=== PATIENT | female | born 1995 | race Caucasian/White ===

== ENCOUNTER 2018-06-23 20:49 | Emergency (ER) | payer BC, OTHER ==
[~2018-06-23] VITALS: Ht 157.5 cm; Wt 88.1 kg
[~2018-06-23 20:49] MED LIST: BCTROWC TD
[2018-06-23 20:51] VITALS: TEMP 37.1; Ht 157.5 cm; Wt 88.1 kg
[2018-06-23] MEDS ORDERED: SODIUM CHLORIDE 0.9% 1000ML 1,000 ML IV STA (21:01)
[2018-06-23] MEDS ORDERED: LEVO50TA6 PO (21:54)
[2018-06-23] MEDS ORDERED: BCPILLS PO (21:54)
[2018-06-23 22:07] LABS: BASO % 0.4 %; BASO ABS # 0.03 K/uL (0-0.2); EOS % 0.7 %; EOS ABS # 0.05 K/uL (0-0.5); HEMATOCRIT 39.5 % (37-47); HEMOGLOBIN 12.5 g/dL (12.0-16.0); IG# 0.01 K/uL (0.00-0.02); LYMPH % 31.7 %; LYMPH ABS # 2.21 K/uL (1.2-3.4); MEAN CELL VOLUME 89.4 fL (80-100); MEAN CORPUSCULAR HEMOGLOBIN 28.3 pg (25-34); MEAN CORPUSCULAR HGB CONC 31.6 g/dl (32-36); MEAN PLATELET VOLUME 12.4 fL (7.4-10.4); MONO ABS # 0.63 K/uL (0.11-0.59); NEUT % 58.1 %; NEUT ABS # 4.04 K/uL (1.4-6.5); PLATELET COUNT 246 K/uL (130-400); RED CELL DISTRIBUTION WIDTH CV 13.6 % (11.5-14.5); RED CELL DISTRIBUTION WIDTH SD 44.3 fL (36.4-46.3); WHITE BLOOD COUNT 6.97 K/uL (4.8-10.8)
--- NOTE | 2018-06-23 22:26 | DIAGNOSTIC IMAGING REPORT ---
ABD/PELVIS WITHOUT FOR STONE CLINICAL HISTORY: 23 years-old Female presenting with right flank pain, hematuria. TECHNIQUE: Multidetector CT of the abdomen and pelvis was performed without the use of intravenous contrast. IV contrast: None. A dose lowering technique was used consistent with the principles of ALARA (as low as reasonably achievable). COMPARISON: None. CT DOSE (mGy.cm): The estimated cumulative dose is 1070.67 mGy.cm. FINDINGS: Open Cut Examiner topogram: Unremarkable. Lung bases: Lungs and pleural spaces clear. Normal heart size. No pericardial or pleural effusion. Liver: Normal morphology. Normal density. Biliary: No gross biliary ductal dilatation allowing for noncontrast technique. Gallbladder decompressed. Pancreas: Normal noncontrast appearance. Spleen: Normal noncontrast appearance. Adrenal glands: Normal noncontrast appearance. Kidneys and ureters: Punctate nonobstructing calculus at the upper pole the right kidney (series 3 image 163) punctate nonobstructing calculus may also be present in the interpolar region of the left kidney (series 3 image 157) though this is equivocal. No hydronephrosis. No perinephric fluid. Ureters nondistended and normal. No ureteral calculi. Bladder: Normal noncontrast appearance. No bladder calculi. Pelvic organs: Normal noncontrast appearance. Bowel: Normal appendix. No bowel obstruction. Peritoneal cavity: No free fluid or intraperitoneal gas. Lymph nodes: No gross lymphadenopathy allowing for noncontrast technique. Vasculature: Normal noncontrast appearance. Calcification noted in the region of the right renal vein/IVC confluence, indeterminate and possibly related to prior thrombus though this may be extravascular. Abdominal wall: Normal. Musculoskeletal: Bilateral pars defects of L5. IMPRESSION: 1. Punctate nonobstructing right renal calculus and questionable punctate nonobstructing left renal calculus. No hydronephrosis or obstructing calculi evident. No acute intra-abdominal pathology allowing for noncontrast technique. Electronically signed by: Puneet Arreola M.D. 06/23/2018 10:24 PM Dictated Date/Time: 06/23/2018 10:18 PM
[2018-06-23 22:38] LABS: ALBUMIN 3.5 gm/dl (3.4-5.0); ALKALINE PHOSPHATASE 58 U/L (45-117); ALT/SGPT 23 U/L (12-78); AST/SGOT 18 U/L (15-37); BLOOD UREA NITROGEN 18 mg/dl (7-18); CALCIUM 8.6 mg/dl (8.5-10.1); CARBON DIOXIDE 28 mmol/L (21-32); CREATININE 0.91 mg/dl (0.60-1.20); GLUCOSE 79 mg/dl (70-99); LIPASE 97 U/L (73-393); SODIUM 141 mmol/L (136-145); TOTAL PROTEIN 7.3 gm/dl (6.4-8.2)
[2018-06-23] MEDS ORDERED: SULF800T23 PO (22:58)
[2018-06-23] MEDS ORDERED: SEPTRA DS HOME PACK 1 EA VIAL PO ONE (23:00)
[2018-06-23] MEDS ORDERED: PHENAZOPYRIDINE HOME PACK 200 MG VIAL PO ONE (23:00)
--- NOTE | 2018-06-23 23:00 | EMERGENCY ROOM VISIT NOTE ---
History Report prepared by Cristina: Emilei Maza Under the Supervision of: Dr. Luis F Mcallister M.D. First contact with patient: 20:57 Chief Complaint: URINARY SYMPTOMS Stated Complaint: UNABLE TO PEE, DEHYDRATION?,PAIN History of Present Illness The patient is a 23 year old female who presents to the Emergency Room with complaints of difficulty urinating beginning at 1500 today. She notes that when she went to use the bathroom, she only urinated a little bit, but felt like she still needed to urinate. She notes when she first noticed her symptoms, her urine was slightly pink tinged. The patient describes her feeling as sharp and uncomfortable and rates her pain as a 6/10 in severity. She has some lower right sided abdominal pain and lower right sided back pain. She reports she had some chest pain yesterday and today which is abnormal for her. Pt denies LOC, headache, fevers, chills, diaphoresis, visual changes, neck pain, breathing difficulties, nausea, vomiting, melena, hematochezia, numbness, weakness, lymphadenopathy, rash, or other complaints. Her PCP is Tobi Engel. Source of History: patient Onset: 1500 today Position: abdomen (RLQ), back (lower right side), other Symptom Intensity: 6/10 in severity Quality: sharp, other (uncomfortable) Associated Symptoms: + chest pain, + abdominal pain (RLQ), + back pain ( lower right side), + urinary symptoms (positive pink tinged urine) Review of Systems See HPI for pertinent positives and negatives. A total of ten systems were reviewed and were otherwise negative. Past Medical & Surgical Medical Problems: (1) Mica's disease Family History Cancer FHx: diabetes mellitus Gallbladder disease Heart disease High blood pressure Social History Smoking Status: Never Smoker Smokeless Tobacco Use: Yes Alcohol Use: none Marital Status: single Housing Status: lives with family Occupation Status: employed Current/Historical Medications Scheduled Control Pills ( Control Pills), 1 TAB PO DAILY Levothyroxine Sodium (Levothyroxine Sodium), 50 MCG PO DAILY Sulfa/Trimethoprim (Bactrim Ds 800MG/160MG), 1 TAB PO BID Allergies Coded Allergies: Ibuprofen (Verified Adverse Reaction, Mild, GI SYMPTOMS, 06/23/18) Physical Exam Vital Signs Date Time Temp Pulse Resp B/P (MAP) Pulse Ox O2 Delivery O2 Flow Rate FiO2 06/23/18 23:20 69 18 114/74 98 06/23/18 20:51 37.1 75 18 126/81 98 Room Air Physical Exam GENERAL: Awake, alert, well-appearing, in no distress HENT: Normocephalic, atraumatic. Oropharynx unremarkable. EYES: Normal conjunctiva. Sclera non-icteric. NECK: Supple. No nuchal rigidity. FROM. No masses. RESPIRATORY: Clear to auscultation. No wheezes. No rales. Normal respiratory effort. CARDIAC: Normal rate. Normal rhythm. No murmurs. No rubs. Extremities warm and well perfused. Pulses equal. No JVD. GI: Soft, non-distended. No tenderness to palpation. No rebound or guarding. No masses. RECTAL: Deferred. MUSCULOSKELETAL: Atraumatic. Chest examination reveals no tenderness. The back is symmetrical on inspection without obvious abnormality. Right CVA tenderness and right flank tenderness to palpation. No joint edema. LOWER EXTREMITIES: Calves are equal size bilaterally and non-tender. No edema. No discoloration. NEURO: Normal sensorium. No sensory or motor deficits noted. SKIN: No rash or jaundice noted. Medical Decision & Procedures ER Provider Diagnostic Interpretation: Radiology results as stated below per my review and radiologist interpretation: ABD/PELVIS WITHOUT FOR STONE CLINICAL HISTORY: 23 years-old Female presenting with right flank pain, hematuria. TECHNIQUE: Multidetector CT of the abdomen and pelvis was performed without the use of intravenous contrast. IV contrast: None. A dose lowering technique was used consistent with the principles of ALARA (as low as reasonably achievable). COMPARISON: None. CT DOSE (mGy.cm): The estimated cumulative dose is 1070.67 mGy.cm. FINDINGS: Photograph Printer topogram: Unremarkable. Lung bases: Lungs and pleural spaces clear. Normal heart size. No pericardial or pleural effusion. Liver: Normal morphology. Normal density. Biliary: No gross biliary ductal dilatation allowing for noncontrast technique. Gallbladder decompressed. Pancreas: Normal noncontrast appearance. Spleen: Normal noncontrast appearance. Adrenal glands: Normal noncontrast appearance. Kidneys and ureters: Punctate nonobstructing calculus at the upper pole the right kidney (series 3 image 163) punctate nonobstructing calculus may also be present in the interpolar region of the left kidney (series 3 image 157) though this is equivocal. No hydronephrosis. No perinephric fluid. Ureters nondistended and normal. No ureteral calculi. Bladder: Normal noncontrast appearance. No bladder calculi. Pelvic organs: Normal noncontrast appearance. Bowel: Normal appendix. No bowel obstruction. Peritoneal cavity: No free fluid or intraperitoneal gas. Lymph nodes: No gross lymphadenopathy allowing for noncontrast technique. Vasculature: Normal noncontrast appearance. Calcification noted in the region of the right renal vein/IVC confluence, indeterminate and possibly related to prior thrombus though this may be extravascular. Abdominal wall: Normal. Musculoskeletal: Bilateral pars defects of L5. IMPRESSION: 1. Punctate nonobstructing right renal calculus and questionable punctate nonobstructing left renal calculus. No hydronephrosis or obstructing calculi evident. No acute intra-abdominal pathology allowing for noncontrast technique. Electronically signed by: Puneet Arreola M.D. 06/23/2018 10:24 PM Laboratory Results 06/23/18 21:43 Red Blood Count 4.42, Mean Corpuscular Volume 89.4, Mean Corpuscular Hemoglobin 28.3, Mean Corpuscular Hemoglobin Concent 31.6, Mean Platelet Volume 12.4, Neutrophils (%) (Auto) 58.1, Lymphocytes (%) (Auto) 31.7, Monocytes (%) (Auto) 9.0, Eosinophils (%) (Auto) 0.7, Basophils (%) (Auto) 0.4, Neutrophils # (Auto) 4.04, Lymphocytes # (Auto) 2.21, Monocytes # (Auto) 0.63, Eosinophils # (Auto) 0.05, Basophils # (Auto) 0.03 06/23/18 21:43 Test 06/23/18 21:40 06/23/18 21:43 Urine Color YELLOW Urine Appearance TURBID (CLEAR) Urine pH 8.0 (4.5-7.5) Urine Specific [place] 1.027 (1.000-1.030) Urine Protein NEG (NEG) Urine Glucose (UA) NEG (NEG) Urine Ketones NEG (NEG) Urine Occult Blood 2+ (NEG) Urine Nitrite NEG (NEG) Urine Bilirubin NEG (NEG) Urine Urobilinogen NEG (NEG) Urine Leukocyte Esterase MODERATE (NEG) Urine WBC (Auto) >30 /hpf (0-5) Urine RBC (Auto) 10-30 /hpf (0-4) Urine Hyaline Casts (Auto) /lpf (0-5) Urine Epithelial Cells (Auto) >30 /lpf (0-5) Urine Bacteria (Auto) 2+ (NEG) Urine Pathogenic Casts /lpf (0) Urine Test NEG (NEG) White Blood Count 6.97 K/uL (4.8-10.8) Red Blood Count 4.42 M/uL (4.2-5.4) Hemoglobin 12.5 g/dL (12.0-16.0) Hematocrit 39.5 % (37-47) Mean Corpuscular Volume 89.4 fL (80-100) Mean Corpuscular Hemoglobin 28.3 pg (25-34) Mean Corpuscular Hemoglobin Concent 31.6 g/dl (32-36) Platelet Count 246 K/uL (130-400) Mean Platelet Volume 12.4 fL (7.4-10.4) Neutrophils (%) (Auto) 58.1 % Lymphocytes (%) (Auto) 31.7 % Monocytes (%) (Auto) 9.0 % Eosinophils (%) (Auto) 0.7 % Basophils (%) (Auto) 0.4 % Neutrophils # (Auto) 4.04 K/uL (1.4-6.5) Lymphocytes # (Auto) 2.21 K/uL (1.2-3.4) Monocytes # (Auto) 0.63 K/uL (0.11-0.59) Eosinophils # (Auto) 0.05 K/uL (0-0.5) Basophils # (Auto) 0.03 K/uL (0-0.2) RDW Standard Deviation 44.3 fL (36.4-46.3) RDW Coefficient of Variation 13.6 % (11.5-14.5) Immature Granulocyte % (Auto) 0.1 % Immature Granulocyte # (Auto) 0.01 K/uL (0.00-0.02) Anion Gap 6.0 mmol/L (3-11) Est Creatinine Clear Calc Drug Dose 100.8 ml/min Estimated GFR () 104.5 Estimated GFR (Non- 90.2 BUN/Creatinine Ratio 20.1 (10-20) Calcium Level 8.6 mg/dl (8.5-10.1) Total Bilirubin < 0.1 mg/dl (0.2-1) Direct Bilirubin mg/dl (0-0.2) Aspartate Amino Transf (AST/SGOT) 18 U/L (15-37) Alanine Aminotransferase (ALT/SGPT) 23 U/L (12-78) Alkaline Phosphatase 58 U/L (45-117) Total Protein 7.3 gm/dl (6.4-8.2) Albumin 3.5 gm/dl (3.4-5.0) Lipase 97 U/L (73-393) Chemistry Specimen Hemolysis Laboratory results reviewed by me Medications Administered Medications (Trade) Dose Ordered Sig/Cyndi Route Start Time Stop Time Status Last Admin Dose Admin Sodium Chloride 1,000 ml @ 999 mls/hr Q1H1M STAT IV 06/23/18 21:01 06/23/18 22:01 DC 06/23/18 21:46 999 MLS/HR Trimethoprim/ Sulfamethoxazole (Sulfameth/ Trimeth Ds 800/ 160MG Home Pack) 1 homepack UD ONCE PO 06/23/18 23:00 06/23/18 23:01 DC 06/23/18 23:16 1 HOMEPACK Phenazopyridine HCl (Phenazopyridine HCl 200MG Home Pack) 1 homepack UD ONCE PO 06/23/18 23:00 06/23/18 23:01 DC 06/23/18 23:17 1 HOMEPACK ECG Per My Interpretation Indication: chest pain Rate (beats per minute): 64 Rhythm: normal sinus Findings: other (no St elevation or depression, no PACs or PVCS, no signs of pericarditis) ED Course 2058: The patient was evaluated in room C7. A complete history and physical exam was performed. 2100: Sodium Chloride 1000 ml @ 999 mls/hr IV 2253: I reevaluated the patient. Discussed results and discharge instructions: She verbalized understanding and agreement. The patient is ready for discharge. Medical Decision Prior records/ancillary studies reviewed. Triage Nursing notes reviewed and agree them. The patient's history was concerning for flank and abdominal pain. Differential diagnosis: Etiologies such as renal colic, appendicitis, diverticulitis, mesenteric ischemia, aortic pathology, infections, inflammatory bowel disease, PUD, biliary pathology, UTI, as well as others were entertained. Physical examination findings: As above. ER treatment provided: Normal saline hydration On reassessment the patient felt better. Bactrim home pack Pyridium home pack Diagnostic interpretation by me: The labs revealed an unremarkable CBC and chemistry panel.. Urinalysis revealed hematuria. There was sign of UTI. Imaging studies: CT of the abdomen and pelvis as above. Patient informed of findings. The patient noted some fleeting right-sided chest pain. She had an unremarkable ECG. No pericarditis. Her lungs were clear. She was not currently having chest pain. Additional imaging or testing regarding this was felt to be unnecessary. She has no stigmata of DVT. The patient has normal vital signs. She is pain-free currently. I suspect this was more referred from her right flank. It appears that the patient has UTI and right flank pain. This is concerning for possible early pyelonephritis. She is doing well at this time. By the evaluation outlined above emergent etiologies such as ureterolithiasis, appendicitis, diverticulitis, mesenteric ischemia, aortic pathology, infections , inflammatory bowel disease, PUD, biliary pathology, as well as others were deemed relatively unlikely. The patient was informed about the findings as listed above. All questions were answered and she was pleased with the treatment. Return instructions were outlined and the patient was discharged in stable condition. Outpatient prescription management: Pyridium Bactrim Referral: The patient was referred back to her primary care physician for follow-up in 2 to 3 days for a recheck of the current condition. Medication Reconcilliation Current Medication List: was personally reviewed by me Blood Pressure Screening Patient's blood pressure: Normal blood pressure Blood pressure disposition: Did not require urgent referral Impression Primary Impression: Right flank pain Additional Impression: UTI (urinary tract infection) Scribe Attestation The scribe's documentation has been prepared under my direction and personally reviewed by me in its entirety. I confirm that the note above accurately reflects all work, treatment, procedures, and medical decision making performed by me. Departure Information Dispostion Home / Self-Care Prescriptions Sulfa/Trimethoprim (Bactrim Ds 800MG/160MG) Tab 1 TAB PO BID, #12 TAB Prov: Luis F Mcallister MD 06/23/18 Referrals Sue Peters D.O. (PCP) Forms HOME CARE DOCUMENTATION FORM, IMPORTANT VISIT INFORMATION Patient Instructions My [facility] Additional Instructions Trimethoprim-Sulfamethoxazole(Bactrim DS): Take one pill twice daily for 7 days for your urine infection. All antibiotics can cause diarrhea. If this occurs and you feel worse or it does not resolve in 1-2 days follow up with your doctor or return to the Emergency Department as this could be signs of serious underlying problems. Any medication can cause an allergic reaction, stop the pills immediately and return to the ER for rash, hives, breathing difficulties, or swelling. Pyridium 200mg: Take one pill three times daily as needed for urinary discomfort. This medication will turn your urine orange. This is normal and nothing to be concerned about. Acetaminophen(Tylenol) may be used for fever or pain. Use 1000mg every six hours as needed. Avoid using more than 3000mg in a 24 hour period. Rest and drink plenty of fluids. Continue current medications. Return to the ER immediately for worsening or persistent abdominal pain, vomiting, fevers, back or flank pain, worsening of your condition, or as needed. Follow up with your primary physician within 2-3 days for a recheck of the current condition. Problem Qualifiers
[2018-06-23 23:20] VITALS: BP 114/74; PULSE 69; O2SAT 98
== END 2018-06-23 23:21 | disposition home or self-care (01) ==
LOC: C.EDB 20:50 → C.EDC 23:21
DX: N39.0 Urinary tract infection, site not specified (principal); E06.3 Autoimmune thyroiditis; Z80.9 Family history of malignant neoplasm, unspecified; Z83.3 Family history of diabetes mellitus; Z83.79 Family history of other diseases of the digestive system; Z82.49 Family history of ischemic heart disease and other diseases of the circulatory system; Z79.3 Long term (current) use of hormonal contraceptives; Z79.899 Other long term (current) drug therapy; Z88.6 Allergy status to analgesic agent

== ENCOUNTER 2025-06-29 23:11 | Inpatient (IN) ==
[2025-06-29] MEDS: SODIUM CHLORIDE 0.9% 1,000 ML IV SCH (23:24)
[2025-06-29] MEDS: RAPID SEQUENCE INDUCTION BAG ONE (23:24)
[2025-06-29 23:27] LABS: Base Excess VBG -2.3 mEq/L; HCO3 VBG 21 mmol/L; Oxygen Saturation VBG < 60.0 %; PCO2 VBG 33 mmHg (38-50); PO2 VBG 26 mmHg; pH VBG 7.42 (7.36-7.41)
[2025-06-29 23:32] LABS: Hematocrit (blood only) 41.8 % (37.0-47.0); Hemoglobin 14.0 g/dl (12.0-16.0); Immature Granulocytes # (auto) 0.02 K/uL (0.01-0.20); Immature Granulocytes % (auto) 0.2 %; Mean Corpuscular Hemoglobin 30.0 pg (25.0-34.0); Mean Corpuscular Volume 89.7 fL (80.0-100.0); Platelet Count 292 K/uL (130-400); RDW Standard Deviation 43.0 fL (36.4-46.3); Red Blood Count 4.66 M/uL (4.20-5.40); White Blood Count 11.31 K/ul (4.8-10.8)
[2025-06-29 23:51] LABS: Alanine Aminotransferase 18.0 U/L (7-52); Albumin Globulin Ratio 1.7 (0.9-2); Alkaline Phosphatase 59.0 U/L (34-104); Anion Gap 13.0 (3-11); Bilirubin,Total 0.5 mg/dl (0.2-1.0); Blood Urea Nitrogen 22.0 mg/dl (6-23); Calcium 8.9 mg/dl (8.6-10.3); Carbon Dioxide 22.0 mmol/L (21-32); Chloride 102.0 mmol/L (98-107); Creatinine Clr Calc Pharmacy 102.1 ml/min; Globulin 2.7 gm/dl (2.5-4.0); Glucose 113.0 mg/dl (70-99(Fasting)); Lipase 39.0 U/L (11-82); Magnesium 1.6 mg/dl (1.7-2.4); Potassium 3.4 mmol/L (3.5-5.1); Sodium 137.0 mmol/L (136-145); Total Protein 7.2 gm/dl (6.0-8.3)
[2025-06-29] MEDS: MAGNESIUM SULFATE / D5W 1 GM/100 ML BAG IV STA (23:52)
[2025-06-30 00:03] LABS: Acetaminophen 38 ug/ml (10-30); Salicylate < 3.0 mg/dl (3.0-30)
--- NOTE | 2025-06-30 00:07 | Emergency Department Note ---
Impression & Plan Intentional overdose, Hypomagnesemia, Hypokalemia, Suicidal ideation, Depression ED Provider Note ED Provider Note NAME: GERSON CHRISTIANSON AGE:30 SEX: Female : 1995 ARRIVES VIA: EMS INFORMANT: Patient ED PROVIDER(s): Carmen Chadwick DO CHIEF COMPLAINT: intentional overdose HPI: This is a 30-year-old female who presents emergency department following an intentional overdose. Patient admits to taking additional doses of her Flexeril and Midol 2200 this evening. She took 10-12 of her flexeril and a whole bottle of Midol. She texted her that "she was done". EMS reported called 911. They state on arrival patient tearful but able to walk to the ambulance under her own power. Patient was initially tachycardic and mildly hypertensive however en route she developed remittent periods of SVT and accompanying hypotension. EMS reported just prior to arriving at the emergency department patient had an episode of vomiting. She did receive fairly 1 L of IV fluids en route and pressure was improved by arrival here. Patient states she feels dizzy, lightheaded, and "out of it". She denies headaches, chest pain, difficulty breathing, abdominal pain or further nausea. She admits to a history of anxiety depression also citing that she and her have been having problems over the last 2 months. She states she took her other routine medications as prescribed. No other coingestions. Patient states she also takes medications for fibromyalgia and was recently started on antibiotics for a sinus infection. PAST MEDICAL HISTORY:See Below PAST SURGICAL HISTORY:See Below FAMILY HISTORY:See Below SOCIAL HISTORY:See Below HOME MEDICATIONS:See Below ALLERGIES:See Below VITALS:See Below PHYSICAL EXAMINATION: GENERAL: alert, tearful and anxious appearing, well nourished, mild distress, non-toxic EYE EXAM: normal conjunctiva, PERRL and EOM's grossly intact OROPHARYNX: no exudate, no erythema, lips, buccal mucosa, and tongue normal and mucous membranes are moist NECK: supple, no nuchal rigidity, no adenopathy, non-tender LUNGS: Clear to auscultation. Normal chest wall mechanics, no w/r/r HEART: no murmurs, S1 normal and S2 normal ABDOMEN: abdomen soft, non-tender, normo-active bowel sounds, no masses, no rebound or guarding. SKIN: no rashes, petechiae, orbruising UPPER EXTREMITIES: upper extremities are grossly normal. FROM, nml pulses b/l. LOWER EXTREMITIES: No pitting edema. FROM, nml pulses b/l. NEURO EXAM: Normal sensorium, cranial nerves II-XII grossly intact, normal speech, no facial droop,nogross weakness of arms, no gross weakness of legs. Gross sensation intact. No ataxia. Vital Signs: reviewed and remarkable Differential Diagnosis: Intentional overdose, acetaminophen overdose, anticholinergic toxicity, electrolyte abnormalities, KATHY, ICH, CVA, dysrhythmia, as well as others were considered MEDICAL DECISION MAKING: This is a 30-year-old female brought in by EMS following an intentional overdose at 2200. Patient tachycardic but awake and responding for EMS. She did have 1 episode of vomiting en route as well as 1 episode of hypotension. On arrival here vital signs stable the patient was tachycardic. She was also tearful and anxious. Labs were drawn and sent, IV established, EKG and chest x-ray were performed at bedside and interpreted by me and the patient was monitored on telemetry. Patient had received 1 L of IV fluids prehospital, an additional bolus of 1 L of normal saline was given on arrival here. Patient's VBG reassuring. Initial EKG with sinus tachycardia and prolonged QTc however repeat following improved heart rate was reassuring with normal intervals. Patient given IV magnesium initially due to concern for possible prolonged QTc however ultimately patient's magnesium level found to be mildly low additionally. Patient also with mild hypokalemia and was started on potassium riders. Patient continued on maintenance fluids following the bolus. Patient's initial acetaminophen level mildly elevated however given calculated amount of Tylenol dose in the Midol in the toxic range patient had already been started on Acetadote. All results were discussed with patient at bedside. She continued to improve here on subsequent rechecks. She continued to complain of dizziness, fatigue, and anxiety. No further episodes of hypotension, no episodes of recurrent vomiting. Due to concern for need for further medical management and observation given significant toxic ingestion, case discussed with hospitalist team for additional evaluation and management. Consultation(s): 2345: Discussed with Poison Control. 0020: Discussed with Dr. Crouch, [facility] hospitalist team, for additional evaluation and mgmt. ER Treatment Provided: See below Diagnostics Interpreted By Me: -ECG: St at 134, nml QRS, QTC 546, nml axis, nonspecific ST/T wave changes ECG #2: NSR at 97, nml axis, nml intervals, no acute ST/T wave changes -Cardiac Monitoring: An order was placed for continuous cardiac monitoring. The monitor shows a rate of 113 with sinus tachycardia rhythm. -Laboratory studies: As stated above and show below. -Imaging studies: X-ray Chest: A single view study of the chest was reviewed and was negative for cardiomegaly, focal infiltrate, effusion, pulmonary edema, or wide mediastinum. Triage Nursing Note Reviewed Prior/Outside Records Reviewed Critical Care: Critical care of 44 min performed to assess and manage high likelihood of life-threatening overdose, involving labs and imaging performed with assessment to evaluate intentional overdoses diagnosis with frequent reassessment. This time includes bedside time, treatment discussions with patient/family/consultants, documentation time and excludes procedure time. Past Med/Surg History Problem List (Updated 06/30/25 @ 00:07 by Carmen Chadwick DO) Depression (Acute) Suicidal ideation (Acute) Hypokalemia (Acute) Hypomagnesemia (Acute) Intentional overdose (Acute) Cerebral aneurysm without rupture Tension headache Migraine Anxiety and depression Obese Oral contraceptive prescribed Encounter for gynecological examination without abnormal finding Mica's disease (Chronic) Medical History Visual disturbance Fibromyalgia Surgical History [place] teeth extracted Hx of tonsillectomy Family History Mother Cervix cancer Other No significant family history Denies family history of Ovarian cancer Breast cancer Colorectal cancer Social History Smoking Status: Never smoker Tobacco Type: E-cigarettes / Vaping Do You Dip or Chew Tobacco: No; Preferred Language: Serbian marital status: Single current occupational status: employed Feels Safe at Home: Yes Allergies Allergies Allergy/AdvReac Type Severity Reaction Status Date / Time ibuprofen AdvReac Mild Gastrointestinal Verified 06/29/25 23:58 Upset Home Meds Home Medications Medication Instructions Recorded Confirmed cholecalciferol (vitamin D3) 50 4,000 unit PO QAM 12/14/19 06/29/25 mcg (2,000 unit) tablet (Vitamin D3) duloxetine 30 mg capsule,delayed 30 mg PO QAM 12/02/20 06/29/25 release gabapentin 400 mg capsule 400 mg PO QAM 12/02/20 06/29/25 meloxicam 15 mg tablet 15 mg PO DAILY PRN Pain 12/02/20 06/29/25 multivitamin (Multiple Vitamins 1 tab PO QAM 12/02/20 06/29/25 tablet) amoxicillin 875 mg-potassium 1 tab PO AMHS 06/29/25 06/29/25 clavulanate 125 mg tablet cetirizine 10 mg tablet 10 mg PO QPM 06/29/25 06/29/25 cyclobenzaprine 5 mg tablet 5 mg PO TID PRN Muscle Spasm 06/29/25 06/29/25 diclofenac sodium 1 % topical gel 1 ea topical AMHS 06/29/25 06/29/25 levothyroxine 88 mcg tablet 88 mcg PO DAILYBB 06/29/25 06/29/25 meclizine 25 mg tablet 25 mg PO TID PRN Dizziness 06/29/25 06/29/25 metformin 500 mg tablet,extended 1,000 mg PO BID 06/29/25 06/29/25 release 24 hr montelukast 10 mg tablet 10 mg PO QAM 06/29/25 06/29/25 omega [id number] oil 1,000 mg 1 cap PO QAM 06/29/25 06/29/25 (120 mg-180 mg) capsule (Fish Oil) sodium chloride 0.65 % nasal spray 2 spray intranasal . NEEDED PRN 06/29/25 06/29/25 aerosol (Saline Nasal) nasal dryness or congestion Results & Data (ED) Vital Signs Vital Signs - 24 hr 06/29/25 23:15 06/29/25 23:15 06/29/25 23:16 Temperature 36.7 C Temperature Source Oral Pulse Rate 135 H 150 H Pulse Rate [Radial] Pulse Rate from SpO2 Sensor 131 H Respiratory Rate 13 22 Respiratory Depth Normal Blood Pressure 142/112 H 142/100 H Blood Pressure [Right Arm] Blood Pressure Mean 121 114 Blood Pressure Mean [Right Arm] Pulse Oximetry 98 100 Oxygen Delivery Method Room Air Sepsis Recent Fever Within 48 Hours No Sepsis New/Unexplained Change in Mental Status No Sepsis Action Taken by Nursing Physician Notified 06/29/25 23:29 06/29/25 23:33 06/29/25 23:33 Temperature Temperature Source Pulse Rate 104 H 102 H Pulse Rate [Radial] 110 H Pulse Rate from SpO2 Sensor 102 H Respiratory Rate 20 36 H Respiratory Depth Normal Blood Pressure 133/93 Blood Pressure [Right Arm] 134/88 Blood Pressure Mean 106 Blood Pressure Mean [Right Arm] 103 Pulse Oximetry 100 100 Oxygen Delivery Method Room Air Sepsis Recent Fever Within 48 Hours Sepsis New/Unexplained Change in Mental Status Sepsis Action Taken by Nursing 06/29/25 23:39 06/29/25 23:48 06/30/25 00:00 Temperature Temperature Source Pulse Rate 114 H 107 H 113 H Pulse Rate [Radial] Pulse Rate from SpO2 Sensor 116 H 105 H 117 H Respiratory Rate 19 20 15 Respiratory Depth Blood Pressure 143/95 H 138/89 133/88 Blood Pressure [Right Arm] Blood Pressure Mean 111 105 103 Blood Pressure Mean [Right Arm] Pulse Oximetry 100 95 97 Oxygen Delivery Method Sepsis Recent Fever Within 48 Hours Sepsis New/Unexplained Change in Mental Status Sepsis Action Taken by Nursing 06/30/25 00:09 06/30/25 00:12 Temperature Temperature Source Pulse Rate 101 H 111 H Pulse Rate [Radial] Pulse Rate from SpO2 Sensor 103 H 112 H Respiratory Rate 30 H 22 Respiratory Depth Blood Pressure 136/92 118/79 Blood Pressure [Right Arm] Blood Pressure Mean 106 92 Blood Pressure Mean [Right Arm] Pulse Oximetry 97 97 Oxygen Delivery Method Sepsis Recent Fever Within 48 Hours Sepsis New/Unexplained Change in Mental Status Sepsis Action Taken by Nursing Laboratory Data 06/29/25 23:16 06/29/25 23:16 Lab Results 06/29/25 06/29/25 Range/Units 23:16 23:22 WBC 11.31 H (4.8-10.8) K/ul RBC 4.66 (4.20-5.40) M/uL Hgb 14.0 (12.0-16.0) g/dl POC Hgb 14.6 (12.0-16.0) g/dl Hct 41.8 (37.0-47.0) % POC Hct 43 (37-47) % MCV 89.7 (80.0-100.0) fL MCH 30.0 (25.0-34.0) pg MCHC 33.5 (32.0-36.0) g/dL RDW Std Deviation 43.0 (36.4-46.3) fL RDW Coeff of Roc[place] 13.1 (11.5-14.5) % Plt Count 292 (130-400) K/uL MPV 10.9 (9.4-12.4) fL Immature Gran % (Auto) 0.2 % Neut % (Auto) 71.6 % Lymph % (Auto) 19.1 % Bowman % (Auto) 7.9 % Eos % (Auto) 0.8 % Baso % (Auto) 0.4 % Neut # (Auto) 8.10 H (1.40-6.50) K/uL Lymph # (Auto) 2.16 (1.20-3.40) K/uL Bowman # (Auto) 0.89 H (0.11-0.59) K/uL Eos # (Auto) 0.09 (0.00-0.50) K/uL Baso # (Auto) 0.05 (0.00-0.20) K/uL Immature Gran # (Auto) 0.02 (0.01-0.20) K/uL PT 11.3 (9.0-12.0) Seconds INR 1.0 (0.9-1.1) VBG pH 7.42 H (7.36-7.41) VBG pCO2 33 L (38-50) mmHg VBG pO2 26 mmHg VBG HCO3 21 mmol/L VBG O2 Saturation < 60.0 % VBG Base Excess -2.3 mEq/L POC Sodium 137 (135-144) mmol/L Sodium 137 (136-145) mmol/L POC Potassium 3.5 (3.3-5.0) mmol/L Potassium 3.4 L (3.5-5.1) mmol/L POC Chloride 103 (101-112) mmol/L Chloride 102 (98-107) mmol/L Carbon Dioxide 22 (21-32) mmol/L POC Total CO2 20 L (24-31) mmol/L Anion Gap 13 H (3-11) POC Anion Gap 18.0 (16-25) mmol/L POC BUN 21 H (7-18) mg/dl BUN 22 (6-23) mg/dl Creatinine 0.85 (0.6-1.2) mg/dl POC Creatinine 0.8 (0.6-1.3) mg/dl Est Cr Clr Drug Dosing 102.1 ml/min eGFR 95.64 BUN/Creatinine Ratio 25.9 H (10-20) Glucose 113 H (70-99(Fasting)) mg/dl POC Glucose (other) 115 H (70-99) mg/dl Calcium 8.9 (8.6-10.3) mg/dl POC Ioniz Calcium Tulio 1.08 L (1.12-1.32) mmol/l Magnesium 1.6 L (1.7-2.4) mg/dl Total Bilirubin 0.5 (0.2-1.0) mg/dl AST 16 (13-39) U/L ALT 18 (7-52) U/L Alkaline Phosphatase 59 (34-104) U/L Troponin I High Sens 7.3 (0-14) pg/ml Total Protein 7.2 (6.0-8.3) gm/dl Albumin 4.5 (3.4-5.0) gm/dl Globulin 2.7 (2.5-4.0) gm/dl Albumin/Globulin Ratio 1.7 (0.9-2) Lipase 39 (11-82) U/L HCG, Qual Negative (Negative) Salicylates < 3.0 L (3.0-30) mg/dl Acetaminophen 38 H (10-30) ug/ml Ethyl Alcohol mg/dL < 10.0 (<10.0) mg/dl Administered Medications Acetylcysteine 4,450 mg/ (Dextrose) 522.25 mls @ 125 mls/hr IV ONCE ONE; Protocol Stop: 06/30/25 04:54 Last Admin: 06/30/25 01:41 Dose: 125 mls/hr Documented By: MICHAELA Potassium Chloride 20 meq/ (Lactated Ringer's) 1,010 mls @ 100 mls/hr IV .Q10H6M ONE Stop: 06/30/25 11:13 Last Admin: 06/30/25 02:10 Dose: 100 mls/hr Documented By: MICHAELA Promethazine HCl (Phenergan) 12.5 mg in 50.5 mls @ 202 mls/hr IV Q6H PRN PRN Reason: Nausea And Vomiting Stop: 07/30/25 01:16 Last Infusion: 06/30/25 04:08 Dose: Infused Documented By: Admin: 06/30/25 03:53 Dose: 202 mls/hr Documented By: JANETH Discontinued Medications Acetylcysteine (Acetylcysteine Iv 21 Hr Regimen (>40kg)) 1 each IV NOW STA; Protocol Stop: 06/29/25 23:44 Last Admin: 06/30/25 01:56 Dose: Not Given Documented By: MICHAELA Sodium Chloride (Nss) 1,000 mls @ 999 mls/hr IV .Q1H1M TRUDY Stop: 06/30/25 00:15 Last Infusion: 06/30/25 01:03 Dose: Infused Documented By: Admin: 06/29/25 23:24 Dose: 999 mls/hr Documented By: Magnesium Sulfate/Dextrose (Magnesium Sulfate / D5w) 1 gm in 100 mls @ 100 mls/hr IV NOW STA Stop: 06/30/25 00:42 Last Infusion: 06/30/25 01:03 Dose: Infused Documented By: Admin: 06/29/25 23:52 Dose: 100 mls/hr Documented By: CHANNING Acetylcysteine 13,350 mg/ (Dextrose) 266.75 mls @ 200 mls/hr IV ONCE ONE; Protocol Stop: 06/30/25 01:03 Last Infusion: 06/30/25 01:37 Dose: Infused Documented By: Admin: 06/30/25 00:19 Dose: 200 mls/hr Documented By: Potassium Chloride (K Des / Wtr) 10 meq in 100 mls @ 100 mls/hr IV Q1H [facility] Stop: 06/30/25 04:14 Last Infusion: 06/30/25 01:42 Dose: Infused Documented By: Admin: 06/30/25 00:19 Dose: 100 mls/hr Documented By: Sodium Chloride (Nss) 1,000 mls @ 125 mls/hr IV .Q8H [facility] Stop: 07/03/25 00:29 Last Infusion: 06/30/25 02:07 Dose: Infused Documented By: Admin: 06/30/25 01:04 Dose: 125 mls/hr Documented By: Miscellaneous (Rapid Sequence Induction Bag) Confirm Administered Dose 1 each N/A .STK-MED ONE Stop: 06/29/25 23:10 Last Admin: 06/29/25 23:24 Dose: Not Given Documented By: Miscellaneous (Stat Iv/Im) 1 each N/A NOW STA Stop: 06/29/25 23:44 Last Admin: 06/30/25 00:19 Dose: Not Given Documented By: Potassium Chloride (Potassium Chloride Pwd 20 Meq Pack) 40 meq PO NOW STA Stop: 06/30/25 00:26 Last Admin: 06/30/25 01:53 Dose: 40 meq Documented By: KLS Imaging Data Radiologist's Impression: Chest X-Ray 06/29/25 23:15 Exam(s): XR CXR 1 VIEW EXAM: XR Chest, 1 View CLINICAL HISTORY: vomiting, OD. TECHNIQUE: Frontal view of the chest. COMPARISON: No relevant prior studies available. FINDINGS: Lungs: Shallow inspiration. No focal consolidation. The pulmonary vasculature demonstrates no significant radiographic abnormality. Pleural space: Unremarkable. No pneumothorax. No large pleural effusion. Heart: Unremarkable. No cardiomegaly. Mediastinum: No significant abnormality identified. The trachea is midline. Bones/joints: Unremarkable. No acute fracture. IMPRESSION: No focal consolidation or acute cardiopulmonary process identified. Electronically signed by: Quang Giordano MD 06/30/25 01:24 AM Discharge Plan Visit Data Chief Complaint: Overdose (Intentional) Stated Complaint: Overdose (Intentional) ED Provider: Carmen Chadwick Discharge Problem: Intentional overdose, Hypomagnesemia, Hypokalemia, Suicidal ideation, Depression Patient Disposition: Being Evaluated by Hospitalist Condition: Fair Discharge Instructions Interventions: ED Discharge Assessment Last Done: 06/30/25 01:45
[2025-06-30] MEDS: POTASSIUM CHLORIDE / WTR 10 MEQ/100 ML PLCT IV SCH (00:19)
[2025-06-30] MEDS: DEXTROSE 5% IV ONE ×3 (00:19→05:39)
[2025-06-30] MEDS: STAT IV/IM STA (00:19)
[2025-06-30] MEDS: ACETYLCYSTEINE IV ONE ×3 (00:19→05:39)
[2025-06-30 00:31] LABS: Pregnancy Test, Serum Negative (Negative)
--- NOTE | 2025-06-30 00:31 | History & Physical Report ---
Date of Service June 30, 2025 Assessment & Plan (1) Intentional overdose: Plan: Assessment and plan below following discussion of case with ED provider and reviewing patient history/pertinent normal/abnormal diagnostic test results. Intentional overdose Midol (Tylenol, caffeine, and pyrilamine) and Flexeril PSVT secondary to above, patient currently in sinus tachycardia Bronchial asthma, not exacerbation hx cerebral aneurysm, patient [place] [facility] hypothyroidism, euthyroid as of recent outpatient TSH last week Hyperglycemia, PCOS on metformin, rule out DM hx fibromyalgia Chronic sinusitis, currently completing outpatient antibiotic course prescribed by PCP Hypokalemia, hypomagnesemia secondary to emesis ongoing vape use Admit to PCU given PSVT Hold Midol and Flexeril home medications Continue Acetadote protocol Follow toxicology recommendations Psych consult re: suicidality Suicide precautions Replace electrolytes Check hemoglobin A1c DVT prophylaxis. Lovenox subcu Full code Text document was generated using [employer] voice recognition software. It may contain grammatical or spelling errors. Kindly contact undersigned for clarification of any documentation item in question. History of Present Illness Chief Complaint: Overdose Primary Care Provider: Roberto Villegas MD History obtained from patient and records. Medical history significant for bronchial asthma, ALEJANDRA not on CPAP, cerebral aneurysm, hypothyroidism, PCOS, fibromyalgia, anxiety/mood disorder, ongoing vape use. Patient admits to stress building up at home in the last year. She took 11 tablets of her Flexeril and a whole bottle of Midol at 2200 last night. History suicidal ingestion 2018 resulting in confinement at [place]. She texted her that she "was done." called EMS. Episodic hypotension and PSVT noted en route to ER. IVF bolus administered by EMS. Frontal sinus pressure from sinusitis symptoms currently being treated by Augmentin. Denies chest pain, SOB. 1 episode of emesis without abdominal pain. Acetadote protocol initiated at the ER. Medical History as above Augmentin prescribed by PCP last week for chronic sinusitis. Surgical History : Vascular procedures, dental surgery, jaw surgery, tonsill ectomy/adenoidectomy Family History : COPD, cervical cancer, DM, thyroid disease, fatty liver Personal/Social history : Ongoing vape use, no EtOH intake, factory work Allergies Allergy/AdvReac Type Severity Reaction Status Date / Time ibuprofen AdvReac Mild Gastrointestinal Verified 06/29/25 23:58 Upset Home Medications Medication Instructions Recorded Confirmed Type cholecalciferol (vitamin D3) 50 4,000 unit PO QAM 12/14/19 06/29/25 History mcg (2,000 unit) tablet (Vitamin D3) duloxetine 30 mg capsule,delayed 30 mg PO QAM 12/02/20 06/29/25 History release gabapentin 400 mg capsule 400 mg PO QAM 12/02/20 06/29/25 History meloxicam 15 mg tablet 15 mg PO DAILY PRN Pain 12/02/20 06/29/25 History multivitamin (Multiple Vitamins 1 tab PO QAM 12/02/20 06/29/25 History tablet) amoxicillin 875 mg-potassium 1 tab PO AMHS 06/29/25 06/29/25 History clavulanate 125 mg tablet cetirizine 10 mg tablet 10 mg PO QPM 06/29/25 06/29/25 History cyclobenzaprine 5 mg tablet 5 mg PO TID PRN Muscle Spasm 06/29/25 06/29/25 History diclofenac sodium 1 % topical gel 1 ea topical AMHS 06/29/25 06/29/25 History levothyroxine 88 mcg tablet 88 mcg PO DAILYBB 06/29/25 06/29/25 History meclizine 25 mg tablet 25 mg PO TID PRN Dizziness 06/29/25 06/29/25 History metformin 500 mg tablet,extended 1,000 mg PO BID 06/29/25 06/29/25 History release 24 hr montelukast 10 mg tablet 10 mg PO QAM 06/29/25 06/29/25 History omega 1-eod-pie-fish oil 1,000 mg 1 cap PO QAM 06/29/25 06/29/25 History (120 mg-180 mg) capsule (Fish Oil) sodium chloride 0.65 % nasal spray 2 spray intranasal . NEEDED PRN 06/29/25 06/29/25 History aerosol (Saline Nasal) nasal dryness or congestion Past Med/Surg History Problem List (Updated 06/30/25 @ 00:07 by Carmen Chadwick DO) Depression (Acute) Suicidal ideation (Acute) Hypokalemia (Acute) Hypomagnesemia (Acute) Intentional overdose (Acute) Cerebral aneurysm without rupture Tension headache Migraine Anxiety and depression Obese Oral contraceptive prescribed Encounter for gynecological examination without abnormal finding Mica's disease (Chronic) Medical History Visual disturbance Fibromyalgia Surgical History [place] teeth extracted Hx of tonsillectomy Family History Mother Cervix cancer Other No significant family history Denies family history of Ovarian cancer Breast cancer Colorectal cancer Social History Smoking Status: Never smoker Tobacco Type: E-cigarettes / Vaping Do You Dip or Chew Tobacco: No; Preferred Language: Serbian marital status: Single current occupational status: employed Feels Safe at Home: Yes Review of Systems Review of Systems: As per HPI, all other systems reviewed and negative Physical Exam Physical Exam: GENERAL: Comfortable, obese, slightly anxious, no respiratory distress SKIN: Normal color, warm HEENT: Lamar palpebral conjunctivae, no ptosis, dry buccal mucosa NECK : Supple, no tenderness CHEST : CTA, no tenderness HEART : Tachycardic, no obvious murmurs ABDOMEN: Some distention, nontender EXTREMITIES : No LE swelling/tenderness, palpable pulses, no other conspicuous deformities noted NEUROLOGIC : Coherent, no facial asymmetry, no other gross focality Results & Data Results & Data Vital Signs (Past 12 Hours) Vital Signs Temp Pulse Pulse Resp BP BP Pulse Ox 06/29/25 23:33 110 H 20 134/88 100 06/29/25 23:29 104 H 06/29/25 23:16 36.7 C 150 H 22 142/100 H 100 06/29/25 23:15 135 H 13 98 06/29/25 23:15 142/112 H O2 Del Method 06/29/25 23:33 Room Air 06/29/25 23:29 06/29/25 23:16 Room Air 06/29/25 23:15 06/29/25 23:15 Laboratory Results Laboratory Results WBC 11.31 K/ul (4.8-10.8) H 06/29/25 23:16 RBC 4.66 M/uL (4.20-5.40) 06/29/25 23:16 Hgb 14.0 g/dl (12.0-16.0) 06/29/25 23:16 POC Hgb 14.6 g/dl (12.0-16.0) 06/29/25 23:22 Hct 41.8 % (37.0-47.0) 06/29/25 23:16 POC Hct 43 % (37-47) 06/29/25 23:22 MCV 89.7 fL (80.0-100.0) 06/29/25 23:16 MCH 30.0 pg (25.0-34.0) 06/29/25 23:16 MCHC 33.5 g/dL (32.0-36.0) 06/29/25 23:16 RDW Std Deviation 43.0 fL (36.4-46.3) 06/29/25 23:16 RDW Coeff of Rocío 13.1 % (11.5-14.5) 06/29/25 23:16 Plt Count 292 K/uL (130-400) 06/29/25 23:16 MPV 10.9 fL (9.4-12.4) 06/29/25 23:16 Immature Gran % (Auto) 0.2 % 06/29/25 23:16 Neut % (Auto) 71.6 % 06/29/25 23:16 Lymph % (Auto) 19.1 % 06/29/25 23:16 Burnett % (Auto) 7.9 % 06/29/25 23:16 Eos % (Auto) 0.8 % 06/29/25 23:16 Baso % (Auto) 0.4 % 06/29/25 23:16 Neut # (Auto) 8.10 K/uL (1.40-6.50) H 06/29/25 23:16 Lymph # (Auto) 2.16 K/uL (1.20-3.40) 06/29/25 23:16 Burnett # (Auto) 0.89 K/uL (0.11-0.59) H 06/29/25 23:16 Eos # (Auto) 0.09 K/uL (0.00-0.50) 06/29/25 23:16 Baso # (Auto) 0.05 K/uL (0.00-0.20) 06/29/25 23:16 Immature Gran # (Auto) 0.02 K/uL (0.01-0.20) 06/29/25 23:16 VBG pH 7.42 (7.36-7.41) H 06/29/25 23:16 VBG pCO2 33 mmHg (38-50) L 06/29/25 23:16 VBG pO2 26 mmHg 06/29/25 23:16 VBG HCO3 21 mmol/L 06/29/25 23:16 VBG O2 Saturation < 60.0 % 06/29/25 23:16 VBG Base Excess -2.3 mEq/L 06/29/25 23:16 POC Sodium 137 mmol/L (135-144) 06/29/25 23:22 Sodium 137 mmol/L (136-145) 06/29/25 23:16 POC Potassium 3.5 mmol/L (3.3-5.0) 06/29/25 23:22 Potassium 3.4 mmol/L (3.5-5.1) L 06/29/25 23:16 POC Chloride 103 mmol/L (101-112) 06/29/25 23:22 Chloride 102 mmol/L (98-107) 06/29/25 23:16 Carbon Dioxide 22 mmol/L (21-32) 06/29/25 23:16 POC Total CO2 20 mmol/L (24-31) L 06/29/25 23:22 Anion Gap 13 (3-11) H 06/29/25 23:16 POC Anion Gap 18.0 mmol/L (16-25) 06/29/25 23:22 POC BUN 21 mg/dl (7-18) H 06/29/25 23:22 BUN 22 mg/dl (6-23) 06/29/25 23:16 Creatinine 0.85 mg/dl (0.6-1.2) 06/29/25 23:16 POC Creatinine 0.8 mg/dl (0.6-1.3) 06/29/25 23:22 Est Cr Clr Drug Dosing 102.1 ml/min 06/29/25 23:16 eGFR 95.64 06/29/25 23:16 BUN/Creatinine Ratio 25.9 (10-20) H 06/29/25 23:16 Glucose 113 mg/dl (70-99(Fasting)) H 06/29/25 23:16 POC Glucose (other) 115 mg/dl (70-99) H 06/29/25 23:22 Calcium 8.9 mg/dl (8.6-10.3) 06/29/25 23:16 POC Ioniz Calcium Tulio 1.08 mmol/l (1.12-1.32) L 06/29/25 23:22 Magnesium 1.6 mg/dl (1.7-2.4) L 06/29/25 23:16 Total Bilirubin 0.5 mg/dl (0.2-1.0) 06/29/25 23:16 AST 16 U/L (13-39) 06/29/25 23:16 ALT 18 U/L (7-52) 06/29/25 23:16 Alkaline Phosphatase 59 U/L (34-104) 06/29/25 23:16 Troponin I High Sens 7.3 pg/ml (0-14) 06/29/25 23:16 Total Protein 7.2 gm/dl (6.0-8.3) 06/29/25 23:16 Albumin 4.5 gm/dl (3.4-5.0) 06/29/25 23:16 Globulin 2.7 gm/dl (2.5-4.0) 06/29/25 23:16 Albumin/Globulin Ratio 1.7 (0.9-2) 06/29/25 23:16 Lipase 39 U/L (11-82) 06/29/25 23:16 Salicylates < 3.0 mg/dl (3.0-30) L 06/29/25 23:16 Acetaminophen 38 ug/ml (10-30) H 06/29/25 23:16 Ethyl Alcohol mg/dL < 10.0 mg/dl (<10.0) 06/29/25 23:16 Diagnostic Findings EKG as per my interpretation :Rate 100, NSR, normal axis, nonspecific T wave abnormalities
[2025-06-30 00:33] LABS: INR 1.0 (0.9-1.1); Prothrombin Time 11.3 Seconds (9.0-12.0)
[2025-06-30] MEDS: SODIUM CHLORIDE 0.9% 1,000 ML IV SCH (01:04)
[2025-06-30] MEDS ORDERED: MELOXICAM 7.5 MG TAB PO PRN (01:14)
[2025-06-30] MEDS ORDERED: SODIUM CHLORIDE 0.65% NA SOLN 45 ML (OCEAN) PRN (01:14)
--- NOTE | 2025-06-30 01:25 | XRay Report ---
Exam(s): XR CXR 1 VIEW EXAM: XR Chest, 1 View CLINICAL HISTORY: vomiting, OD. TECHNIQUE: Frontal view of the chest. COMPARISON: No relevant prior studies available. FINDINGS: Lungs: Shallow inspiration. No focal consolidation. The pulmonary vasculature demonstrates no significant radiographic abnormality. Pleural space: Unremarkable. No pneumothorax. No large pleural effusion. Heart: Unremarkable. No cardiomegaly. Mediastinum: No significant abnormality identified. The trachea is midline. Bones/joints: Unremarkable. No acute fracture. IMPRESSION: No focal consolidation or acute cardiopulmonary process identified. Electronically signed by: Quang Giordano MD 06/30/25 01:24 AM
[2025-06-30 01:27] LABS: Appearance Urine Cloudy (Clear); Bacteria Urine Automated 3+ (None Seen); Cast Urine Automated 0-2 /lpf (0-2); Epithelial Cell Urine Auto >20 /hpf (0-2); Glucose Urine UA Negative (Negative); RBC Urine Automated 0-2 /hpf (0-2); WBC Urine Automated 0-5 /hpf (0-5)
[2025-06-30] MEDS: POTASSIUM CHLORIDE PWD 20 MEQ PACK PO STA (01:53)
[2025-06-30] MEDS: AcetylCYSTEINE IV 21 HR REGIMEN (>40KG) IV STA (01:56)
[2025-06-30 02:10] LABS: Amphetamines+Metham, Urine Neg (Neg); MDMA (Ecstacy), Urine Neg (Neg); Marijuana, Urine Pos (Neg)
[2025-06-30] MEDS: POTASSIUM CHLORIDE 20 MEQ in LACTATED RINGER'S 1,000 ML IV ONE (02:10)
[2025-06-30] MEDS: PROMETHAZINE 12.5 MG/50.5 ML BAG IV PRN (03:53)
[2025-06-30 04:51] LABS: Hematocrit (blood only) 39.4 % (37.0-47.0); Hemoglobin 12.9 g/dl (12.0-16.0); Immature Granulocytes # (auto) 0.02 K/uL (0.01-0.20); Immature Granulocytes % (auto) 0.2 %; Mean Corpuscular Hemoglobin 29.4 pg (25.0-34.0); Mean Corpuscular Volume 89.7 fL (80.0-100.0); Platelet Count 265 K/uL (130-400); RDW Standard Deviation 42.8 fL (36.4-46.3); Red Blood Count 4.39 M/uL (4.20-5.40); White Blood Count 8.65 K/ul (4.8-10.8)
--- NOTE | 2025-06-30 05:36 | Communication Note ---
Date of Service: June 30, 2025 4-hour Tylenol level within normal limits. Okay to [facility] Acetadote protocol as per Poison Control.
[2025-06-30 05:48] LABS: Alanine Aminotransferase 16.0 U/L (7-52); Alkaline Phosphatase 49.0 U/L (34-104); Anion Gap 7.0 (3-11); Bilirubin,Total 0.5 mg/dl (0.2-1.0); Blood Urea Nitrogen 14.0 mg/dl (6-23); Calcium 8.4 mg/dl (8.6-10.3); Carbon Dioxide 23.0 mmol/L (21-32); Chloride 107.0 mmol/L (98-107); Creatinine Clr Calc Pharmacy 112.7 ml/min; Glucose 122.0 mg/dl (70-99(Fasting)); Magnesium 2.0 mg/dl (1.7-2.4); Potassium 4.4 mmol/L (3.5-5.1); Sodium 137.0 mmol/L (136-145); Total Protein 6.6 gm/dl (6.0-8.3)
[2025-06-30] MEDS: LEVOTHYROXINE SODIUM 88 MCG TABLET PO SCH (06:55)
[2025-06-30 07:27] LABS: Hemoglobin A1C 5.2 % (4.5-5.6)
[2025-06-30] MEDS: AMOXICILLIN/CLAVULANATE 875 MG TAB PO SCH (08:47)
[2025-06-30] MEDS: GABAPENTIN 400 MG CAP PO SCH (08:48)
[2025-06-30] MEDS: MONTELUKAST SODIUM 10 MG TABLET PO SCH (08:48)
[2025-06-30] MEDS: MULTIVITAMIN TAB PO SCH (08:48)
[2025-06-30] MEDS: DICLOFENAC SOD 1% GEL 100 GM TUBE EXT SCH (08:48)
[2025-06-30] MEDS: ENOXAPARIN INJ 40 MG/0.4 ML SYR SQ SCH (08:49)
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
[2025-06-30 12:29] LABS: Appearance Urine Clear (Clear); Bacteria Urine Automated None Seen (None Seen); Cast Urine Automated 0-2 /lpf (0-2); Glucose Urine UA Negative (Negative); RBC Urine Automated 0-2 /hpf (0-2)
--- NOTE | 2025-06-30 13:05 | Electrocardiogram Report ---
Test Reason : Blood Pressure : */* mmHG Vent. Rate : 134 BPM Atrial Rate : 134 BPM P-R Int : 100 ms QRS Dur : 72 ms QT Int : 366 ms P-R-T Axes : 55 60 61 degrees QTcB Int : 546 ms Sinus tachycardia with short CO Abnormal ECG When compared with ECG of 19-Oct-2024 10:53, CO interval has decreased Vent. rate has increased by 71 bpm Non-specific change in ST segment in Lateral leads T wave inversion now evident in Inferior leads T wave inversion now evident in Lateral leads Confirmed by Delvis Willoughby ([id number]) on 06/30/2025 1:04:48 PM Referred By: Confirmed By: Delvis Willoughby
--- NOTE | 2025-06-30 13:05 | Electrocardiogram Report ---
Test Reason : Blood Pressure : */* mmHG Vent. Rate : 97 BPM Atrial Rate : 97 BPM P-R Int : 144 ms QRS Dur : 76 ms QT Int : 354 ms P-R-T Axes : 58 48 41 degrees QTcB Int : 449 ms Normal sinus rhythm Nonspecific T wave abnormality Abnormal ECG When compared with ECG of 29-Jun-2025 23:17, (unconfirmed) WA interval has increased Confirmed by Delvis Willoughby ([id number]) on 06/30/2025 1:05:28 PM Referred By: REFERRED SELF Confirmed By: Delvis Willoughby
--- NOTE | 2025-06-30 14:21 | Communication Note ---
Date of Service: June 30, 2025 evaluated patient at bedside very tearful, reports concerns of "failing everyone", "not sure if [she] can trust anyone", "everything feels wrong", "triggered by everything" "getting flashbacks." Upon attempting to engage more, she states that she doesn't feel like she "can get out of this." Denies any chest pain, abdominal pain, or physical symptoms exam notable for tearful distraught woman, no focal deficits, tele reviewed, no other psvt #Intentional overdose #Suicidal ideation labs stable, no electrolyte abnormalities discontinue flexeril and midol tylenol negative, poison control following salicylates negative, u tox+ marijuana, UA otherwise negative COVID negative possible accepatnce to 3S continue to monitor 1:1 suicide precautions #PSVT 2/2 anxiety, OD no further episodes on tele normal rates this afternoon #hypomagnesemia #hypophosphatemia continue to trend, stable at this time rest of plan per HP
[2025-06-30] MEDS: CETIRIZINE HCL 10 MG TABLET PO SCH (19:51)
--- NOTE | 2025-07-01 11:46 | Discharge Summary ---
Discharge Summary Date of Service July 01, 2025 Principal Dx & Hospital Course #1 = Principal Diagnosis (1) Intentional overdose: Ms. Fletcher is a 30 yo woman with medical history significant for bronchial asthma, ALEJANDRA not on CPAP, cerebral aneurysm, hypothyroidism, PCOS, fibromyalgia, anxiety/mood disorder, ongoing vape use who was admitted for telemetry monitoring iso intentional overdose. Patient initially had PSVT on arrival which resolved. Patient also with mild urinary retention which was self limited and resolved. Patient to continue augmentin through 07/04 for sinusitis being managed prior to admission. #Intentional overdose #Suicidal ideation labs stable, no electrolyte abnormalities discontinue flexeril and midol tylenol negative, poison control following salicylates negative, u tox+ marijuana, UA otherwise negative COVID negative possible accepatnce to 3S continue to monitor 1:1 suicide precautions #PSVT 2/2 anxiety, OD no further episodes on tele normal rates this afternoon #hypomagnesemia #hypophosphatemia continue to trend, stable at this time Notes For Next Care Provider Follow up with 3S Medication Changes From Visit d/c cyclobenzaprine Admission HPI Per Admitting Provider History obtained from patient and records. Medical history significant for bronchial asthma, ALEJANDRA not on CPAP, cerebral aneurysm, hypothyroidism, PCOS, fibromyalgia, anxiety/mood disorder, ongoing vape use. Patient admits to stress building up at home in the last year. She took 11 tablets of her Flexeril and a whole bottle of Midol at 2200 last night. History suicidal ingestion 2018 resulting in confinement at [place]. She texted her that she "was done." called EMS. Episodic hypotension and PSVT noted en route to ER. IVF bolus administered by EMS. Frontal sinus pressure from sinusitis symptoms currently being treated by Augmentin. Denies chest pain, SOB. 1 episode of emesis without abdominal pain. Acetadote protocol initiated at the ER. Medical History as above Augmentin prescribed by PCP last week for chronic sinusitis. Surgical History : Vascular procedures, dental surgery, jaw surgery, tonsillectomy/adenoidectomy Family History : COPD, cervical cancer, DM, thyroid disease, fatty liver Personal/Social history : Ongoing vape use, no EtOH intake, factory work Admission Exam Per Admitting Provider GENERAL: Comfortable, obese, slightly anxious, no respiratory distress SKIN: Normal color, warm HEENT: [place] palpebral conjunctivae, no ptosis, dry buccal mucosa NECK : Supple, no tenderness CHEST : CTA, no tenderness HEART : Tachycardic, no obvious murmurs ABDOMEN: Some distention, nontender EXTREMITIES : No LE swelling/tenderness, palpable pulses, no other conspicuous deformities noted NEUROLOGIC : Coherent, no facial asymmetry, no other gross focality Discharge Exam Constitutional WD/WN, vitals as above Respiratory normal respiratory effort, lungs clear to auscultation Cardiovascular RRR, no murmur, no edema Gastrointestinal (Abdomen) normal bowel sounds, soft, nontender, no hepatosplenomegaly Updated Medication List Medication Instructions Recorded Confirmed Type cholecalciferol (vitamin D3) 50 4,000 unit PO QAM 12/14/19 06/29/25 History mcg (2,000 unit) tablet (Vitamin D3) duloxetine 30 mg capsule,delayed 90 mg PO QAM 12/02/20 07/01/25 History release gabapentin 400 mg capsule 400 mg PO QAM 12/02/20 06/29/25 History meloxicam 15 mg tablet 15 mg PO DAILY PRN Pain 12/02/20 06/29/25 History multivitamin (Multiple Vitamins 1 tab PO QAM 12/02/20 06/29/25 History tablet) cetirizine 10 mg tablet 10 mg PO QPM 06/29/25 06/29/25 History diclofenac sodium 1 % topical gel 1 ea topical AMHS 06/29/25 06/29/25 History levothyroxine 88 mcg tablet 88 mcg PO DAILYBB 06/29/25 06/29/25 History meclizine 25 mg tablet 25 mg PO TID PRN Dizziness 06/29/25 06/29/25 History metformin 500 mg tablet,extended 1,000 mg PO BID 06/29/25 06/29/25 History release 24 hr montelukast 10 mg tablet 10 mg PO QAM 06/29/25 06/29/25 History omega 8-rfl-vqi-fish oil 1,000 mg 1 cap PO QAM 06/29/25 06/29/25 History (120 mg-180 mg) capsule (Fish Oil) sodium chloride 0.65 % nasal spray 2 spray intranasal . NEEDED PRN 06/29/25 06/29/25 History aerosol (Saline Nasal) nasal dryness or congestion amoxicillin 875 mg-potassium 1 tab PO AMHS #0 tabs 07/01/25 06/29/25 Rx clavulanate 125 mg tablet Hospital Stay Data Consultations 06/30/25 00:27 ED Decision to Admit Stat 06/30/25 01:46 Consult Psychiatry Routine Pending Results Patient Have Any Pending Studies at Discharge: No Discharge Instructions Given to Patient (Per Discharging Provider) You were admitted for intentional overdose. Please discontinue cyclobenzaprine. You will continue to follow with the Behavioral Health Unit. Please continue your Augmentin two times a day, your next dose is this evening. You will ocntinue through the evening of 07/04 Total Time Total Time Spent Total Time Spent (In Minutes): 45
[2025-07-02 09:32] LABS: Marijuana Quant, GCMS Urine 477 ng/mL (<5)
== END 2025-07-01 12:43 | DRG 918 ==
LOC: ED 23:11 → EDINP 06-30 00:32 → 2S 06-30 01:45

== ENCOUNTER 2025-07-01 09:25 | Inpatient (IN) ==
[2025-07-01] MEDS ORDERED: MAGNESIUM HYDROXIDE SUSP 30 ML UDC PO PRN (10:06)
[2025-07-01] MEDS ORDERED: SODIUM CHLORIDE 0.65% NA SOLN 45 ML (OCEAN) PRN ×2 (10:06→13:06)
[2025-07-01] MEDS ORDERED: ACETAMINOPHEN 325 MG TAB PO PRN (10:06)
[2025-07-01] MEDS ORDERED: ALUMINUM/MAGNESIUM SUSP 30 ML UDC PO PRN (10:06)
[2025-07-01] MEDS ORDERED: BISMUTH SUBSALICYLATE 262 MG CHEW PO PRN (10:06)
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
[2025-07-01] MEDS ORDERED: MELOXICAM 7.5 MG TAB PO PRN (13:06)
[2025-07-01] MEDS ORDERED: Patient's HEIGHT &/or WEIGHT Needed STA (13:25)
[2025-07-01] MEDS: AMOXICILLIN/CLAVULANATE 875 MG TAB PO SCH (21:33)
[2025-07-01] MEDS: CETIRIZINE HCL 10 MG TABLET PO SCH (21:33)
[2025-07-01] MEDS: DICLOFENAC SOD 1% GEL 100 GM TUBE EXT SCH (21:36)
[2025-07-02] MEDS: LEVOTHYROXINE SODIUM 88 MCG TABLET PO SCH (08:47)
[2025-07-02] MEDS: MONTELUKAST SODIUM 10 MG TABLET PO SCH (08:47)
[2025-07-02] MEDS: OMEGA-3 (PURIFIED FISH OIL) 1 GM CAP PO SCH (08:48)
[2025-07-02] MEDS: GABAPENTIN 400 MG CAP PO SCH (08:48)
[2025-07-02] MEDS: MULTIVITAMIN TAB PO SCH (08:48)
--- NOTE | 2025-07-02 08:51 | Psychiatric Progress Note ---
Date of Service July 02, 2025 Impression / Recommendations Impression GERSON CHRISTIANSON is a 30-year-old F who currently lives with her , has a history of PTSD, depression, anxiety, fibromyalgia, and was admitted on 07/01/25 12:03 on a 201 voluntary commitment for suicidal attempt by overdose. Patient with unclear history of mood disorder Who presented after a suicide attempt by overdose. Differential includes depression with psychosis, bipolar disorder, heavy metal intoxication. Overall, I spent a total of 30 minutes with this case, including review of chart,review of records,direct evaluation of the patient,counseling the patient,ordering medication,coordination with nursing, risk assessment, documentation. (1) Suicidal ideation: (2) Intentional overdose: (3) Migraine: (4) Mica's disease: (5) Unspecified mood [affective] disorder: Plan 07/02/25: -Recent labs results reviewed and shared with the patient. Labs for heavy metals collected, results pending. - Continue medications without changes, monitor for signs of marian in the context of duloxetine 30 mg twice daily. 07/01/25: The patient was admitted to the [facility] ([facility] health unit) on q15 min checks (behavioral with suicide precautions) for safety. The patient will participate in group, recreational, and milieu therapies and will be offered additional individual and family sessions as clinically appropriate. -Resuming duloxetine at 30 mg p.o. twice daily, monitor for marian -Continue medications for general medical conditions -Labs ordered Suicide Risk Level Suicide Risk Level: High-Moderate (q15 min suicide checks) Risk Factors Assessment Do You Have Access To A Gun?: Yes Interval History Identifying Information GERSON CHRISTIANSON is a 30-year-old F who currently lives with her , has a history of depression, anxiety, fibromyalgia, and was admitted on 07/01/25 12:03 on a 201 voluntary commitment for suicidal attempt by overdose. Chief Complaint "I slept realy well. I feel better than I was but there might be more work to do." Review of Systems Sleep Information Total Hours of Sleep: 7.75 Meal Information Percent Meal Consumed - Dinner: 75 Subjective Subjective Patient was seen & assessed and interval progress reviewed during treatment team with nursing and social work. According to staff, patient had a good visit with her last evening. Today rated her mood at 4 and told staff that she "felt guarded" During our session, patient presented calm and cooperative. Reported her night was calm. Patient indicated she had a good night of sleep and feels rested today. When asked about her visitation time with her last night patient stated "it was neutral" Patient spoke About her history of trauma without delving into details. She stated that the flashbacks are something that she has dealt with for many years. Patient had a course of EMDR in the past. She feels that the trigger for the episode that led to this admission was related to problems trusting her . Patient stated, "Letting the guard down, ways to stop the flashbacks about everything that happened. Everything leading up, not feeling safe at home." Suicidal thoughts in January occurred in the context of being off medication for 3 months because she lost insurance coverage. "I was all sorts of messed up." However, when taking CYmbalta 90 mg she felt the higher dose made her feel restless "it was anxiety in my body" but did not keep her up at night. Denied any history of symptoms consistent with marian or hypomania. Physical Exam Psychiatric Orientation: alert and oriented x 3 Apperance: appropriately dressed and appropriately groomed Eye Contact: good eye contact Motor Behavior: no abnormal motor movements Speech: normal rate/rhythm/volume of speech Affect: + labile affect; no tearful affect Mood: + dysphoric mood Thought Process: goal directed thought process Thought Content: + preoccupation, + cognitive distortions and + ideas of reference Suicidal Thoughts: denies suicidal thoughts Homicidal Thoughts: denies homicidal thoughts Hallucinations: no auditory hallucinations and no visual hallucinations Cognition: attention grossly intact and language grossly intact Estimated Intelligence: average estimated intelligence Insight: + fair insight Judgment: + fair judgement Vital Signs (Past 24 Hours) Last Vital Signs Temp 36.5 C 07/02/25 06:30 Pulse 101 H 07/02/25 06:32 Resp 16 07/02/25 06:30 BP 115/79 07/02/25 06:32 Pulse Ox 100 07/01/25 13:26 O2 Del Method Room Air 07/01/25 13:26 Results & Data ([facility]) Laboratory Results Laboratory Results - last 24 hr 07/01/25 14:58 Vitamin B12 616 Arsenic Pending Lead Pending Mercury Pending Current Inpatient Medications Current Inpatient Medications: Current Inpatient Medications Acetaminophen (Acetaminophen 325 Mg Tab) 650 mg PO Q4H PRN PRN Reason: Headache or Minor Fever Stop: 07/31/25 10:05 Al Hydrox/Mg Hydrox/Simethicone (Aluminum/Magnesium Susp 30 Ml Udc) 30 ml PO Q4H PRN PRN Reason: GI Upset Stop: 07/31/25 10:05 Amoxicillin/Clavulanate Potassium (Amoxicillin/Clavulanate 875 Mg Tab) 1 tab PO [facility]; Protocol Stop: 07/03/25 20:59 Last Admin: 07/02/25 08:49 Dose: 1 tab Bismuth Subsalicylate (Bismuth Subsalicylate 262 Mg Chew) 2 tab PO Q30M PRN PRN Reason: Loose Stool/Diarrhea Stop: 07/31/25 10:05 Cetirizine HCl (Cetirizine Hcl 10 Mg Tablet) 10 mg PO QPM [facility] Stop: 07/31/25 20:59 Last Admin: 07/01/25 21:33 Dose: 10 mg Diclofenac Sodium (Diclofenac Sod 1% Gel 100 Gm Tube) 4 gm EXT [facility]; Protocol Stop: 07/31/25 20:59 Last Admin: 07/01/25 21:36 Dose: Not Given Duloxetine HCl (Duloxetine Hcl 30 Mg Cap) 30 mg PO BID [facility] Stop: 08/01/25 08:59 Last Admin: 07/02/25 08:49 Dose: 30 mg Fish Oil ([place]-3 (Purified Fish Oil) 1 Gm Cap) [facility] Stop: 08/01/25 08:59 Last Admin: 07/02/25 08:48 Dose: 1 cap Gabapentin (Gabapentin 400 Mg Cap) 400 mg PO [facility] Stop: 08/01/25 08:59 Last Admin: 07/02/25 08:48 Dose: 400 mg Hydroxyzine HCl (Hydroxyzine Hcl 25 Mg Tab) 25 mg PO Q4H PRN PRN Reason: Anxiety Stop: 07/31/25 10:05 Levothyroxine Sodium (Levothyroxine Sodium 88 Mcg Tablet) 88 mcg PO DAILYBB [facility] Stop: 08/01/25 07:59 Last Admin: 07/02/25 08:47 Dose: 88 mcg Magnesium Hydroxide (Magnesium Hydroxide Susp 30 Ml Udc) 30 ml PO DAILY PRN PRN Reason: Constipation Stop: 07/31/25 10:05 Meloxicam (Meloxicam 7.5 Mg Tab) 15 mg PO DAILY PRN PRN Reason: Pain Stop: 07/31/25 13:05 Metformin HCl (Metformin Hcl Er 500 Mg Tabcr) 1,000 mg PO BID [facility] Stop: 07/31/25 20:59 Last Admin: 07/02/25 08:47 Dose: 1,000 mg Montelukast Sodium (Montelukast Sodium 10 Mg Tablet) 10 mg PO QAM [facility] Stop: 08/01/25 08:59 Last Admin: 07/02/25 08:47 Dose: 10 mg Multivitamins (Multivitamin Tab) 1 tab PO QAM [facility] Stop: 08/01/25 08:59 Last Admin: 07/02/25 08:48 Dose: 1 tab Sodium Chloride (Sodium Chloride 0.65% Na Soln 45 Ml ([place])) 1 - 2 sprays NA PRN PRN PRN Reason: Nasal Dryness/Congestion Stop: 07/31/25 10:05 Sodium Chloride (Sodium Chloride 0.65% Na Soln 45 Ml ([place])) 2 sprays NA DAILY PRN PRN Reason: nasal dryness or congestion Stop: 07/31/25 13:05 Post Discharge Appointments Primary Care Physician Name Of Family Doctor/PCP: Roberto Villegas Date of Future Appointment with PCP: 07/05/25 (2) Intentional overdose Encounter type: subsequent encounter Qualified Code(s): T50.902D - Poisoning by unspecified drugs, medicaments and biological substances, intentional self- harm, subsequent encounter (3) Migraine Migraine type: unspecified
--- NOTE | 2025-07-03 10:17 | Psychiatric Progress Note ---
Date of Service July 03, 2025 Impression / Recommendations Impression GERSON CHRISTIANSON is a 30-year-old woman who currently lives with her , has a history of PTSD, depression, anxiety, fibromyalgia, and was admitted on 07/01/25 12:03 on a 201 voluntary commitment for suicidal attempt by overdose. Patient with unclear history of mood disorder who presented after a suicide attempt by overdose. Diagnosis of unspecified depressive disorder with broad differential. A: Mood stabilizing but still with periods of tearfulness and ongoing vague thought content that makes it difficult to determine if there is any ongoing paranoia. Tolerating higher dose of duloxetine. Reviewed option to try naltrexone for off-label use for pain, she declines. Needs support meeting and determination of outpatient services. She declines option for case management, interested in psychiatry and therapy. Overall, I spent a total of 38 minutes on this case including meeting with the patient, reviewing the chart, nursing report, multidisciplinary team meeting, orders, and documentation. (1) Suicidal ideation: (2) Unspecified mood [affective] disorder: (3) Intentional overdose: (4) Migraine: (5) Mica's disease: Plan 07/03/2025: -Continue current medications and tx plan 07/02/25: -Recent labs results reviewed and shared with the patient. Labs for heavy metals collected, results pending. - Continue medications without changes, monitor for signs of marian in the context of duloxetine 30 mg twice daily. 07/01/25: The patient was admitted to the [facility] ([facility] mental health unit) on q15 min checks (behavioral with suicide precautions) for safety. The patient will participate in group, recreational, and milieu therapies and will be offered additional individual and family sessions as clinically appropriate. -Resuming duloxetine at 30 mg p.o. twice daily, monitor for marian -Continue medications for general medical conditions -Labs ordered Inventory Assets Strengths: supportive relationships, willing to get treatment Needs: safety and stabilization, medication adjustment, additional coping skills, increased outpatient services Suicide Risk Level Suicide Risk Level: Moderate (q15 min suicide checks) (s/p suicide attempt but mood improving and now denying SI and feels safe in the hospital and feels able to ask for support from staff) Risk Factors Assessment Male: No : Yes Do You Have Access To A Gun?: Yes Health Problems: Yes Mental Health Diagnoses: Yes Substance Use Disorders: No Previous Attempt: Yes Family History of Suicide: No Previous Psychiatric Hospitalization: Yes Hopelessness: No Protective Factors Assessment : Yes Employed: Yes Stable Relationships: Yes Supportive Family: Yes Interval History Identifying Information GERSON CHRISTIANSON is a 30-year-old F who currently lives with her , has a history of depression, anxiety, fibromyalgia, and was admitted on 07/01/25 12:03 on a 201 voluntary commitment for suicidal attempt by overdose. Chief Complaint "I think it was because I wasn't communicating". Review of Systems Sleep Information Total Hours of Sleep: 7.5 Meal Information Percent Meal Consumed - Breakfast: 90 Percent Meal Consumed - Lunch: 90 Percent Meal Consumed - Dinner: 50 Subjective Subjective Patient was seen & assessed and interval progress reviewed with nursing. She reports feeling less suicidal and having more insight about factors that lead to her overdose including difficulty communicating. Emotional in discussing this. Reports she gets intermittent hot flashes with facial flushing, doesn't seem to be worse with higher dose of duloxetine. Denies any medication side effects. Willing to work to schedule support meeting with her , agreeable to social work helping with aftercare. Physical Exam Psychiatric Orientation: alert and oriented x 3 Apperance: appropriately dressed and appropriately groomed Eye Contact: good eye contact Motor Behavior: no abnormal motor movements Speech: normal rate/rhythm/volume of speech Affect: + anxious affect and + tearful affect Mood: + anxious mood and + irritable mood Thought Process: + circumstantial thought process (vague) Thought Content: + cognitive distortions and reality based without delusions Suicidal Thoughts: denies suicidal thoughts Homicidal Thoughts: denies homicidal thoughts Hallucinations: no auditory hallucinations and no visual hallucinations Cognition: attention grossly intact and language grossly intact Estimated Intelligence: average estimated intelligence Insight: + limited insight Judgment: + fair judgement Vital Signs (Past 24 Hours) Last Vital Signs Temp 36.5 C 07/03/25 06:22 Pulse 82 07/03/25 06:24 Resp 17 07/03/25 06:22 BP 121/84 07/03/25 06:24 Pulse Ox 98 07/03/25 06:22 O2 Del Method Room Air 07/03/25 06:22 Results & Data ([facility]) Current Inpatient Medications Current Inpatient Medications: Current Inpatient Medications Acetaminophen (Acetaminophen 325 Mg Tab) 650 mg PO Q4H PRN PRN Reason: Headache or Minor Fever Stop: 07/31/25 10:05 Al Hydrox/Mg Hydrox/Simethicone (Aluminum/Magnesium Susp 30 Ml Udc) 30 ml PO Q4H PRN PRN Reason: GI Upset Stop: 07/31/25 10:05 Amoxicillin/Clavulanate Potassium (Amoxicillin/Clavulanate 875 Mg Tab) 1 tab PO [facility]; Protocol Stop: 07/03/25 20:59 Last Admin: 07/03/25 08:41 Dose: 1 tab Bismuth Subsalicylate (Bismuth Subsalicylate 262 Mg Chew) 2 tab PO Q30M PRN PRN Reason: Loose Stool/Diarrhea Stop: 07/31/25 10:05 Cetirizine HCl (Cetirizine Hcl 10 Mg Tablet) 10 mg PO QPM [facility] Stop: 07/31/25 20:59 Last Admin: 07/02/25 20:56 Dose: Not Given Diclofenac Sodium (Diclofenac Sod 1% Gel 100 Gm Tube) 4 gm EXT [facility]; Protocol Stop: 07/31/25 20:59 Last Admin: 07/03/25 08:43 Dose: Not Given Duloxetine HCl (Duloxetine Hcl 30 Mg Cap) 30 mg PO BID [facility] Stop: 08/01/25 08:59 Last Admin: 07/03/25 08:41 Dose: 30 mg Fish Oil ([place]-3 (Purified Fish Oil) 1 Gm Cap) 1 cap PO [facility] Stop: 08/01/25 08:59 Last Admin: 07/03/25 08:41 Dose: 1 cap Gabapentin (Gabapentin 400 Mg Cap) 400 mg PO [facility] Stop: 08/01/25 08:59 Last Admin: 07/03/25 08:42 Dose: 400 mg Hydroxyzine HCl (Hydroxyzine Hcl 25 Mg Tab) 25 mg PO Q4H PRN PRN Reason: Anxiety Stop: 07/31/25 10:05 Levothyroxine Sodium (Levothyroxine Sodium 88 Mcg Tablet) 88 mcg PO DAILYBB [facility] Stop: 08/01/25 07:59 Last Admin: 07/03/25 08:24 Dose: 88 mcg Magnesium Hydroxide (Magnesium Hydroxide Susp 30 Ml Udc) 30 ml PO DAILY PRN PRN Reason: Constipation Stop: 07/31/25 10:05 Meloxicam (Meloxicam 7.5 Mg Tab) 15 mg PO DAILY PRN PRN Reason: Pain Stop: 07/31/25 13:05 Metformin HCl (Metformin Hcl Er 500 Mg Tabcr) 1,000 mg PO BID [facility] Stop: 07/31/25 20:59 Last Admin: 07/03/25 08:42 Dose: 1,000 mg Montelukast Sodium (Montelukast Sodium 10 Mg Tablet) 10 mg PO QAM [facility] Stop: 08/01/25 08:59 Last Admin: 07/03/25 08:43 Dose: 10 mg Multivitamins (Multivitamin Tab) 1 tab PO QAM [facility] Stop: 08/01/25 08:59 Last Admin: 07/03/25 08:43 Dose: 1 tab Sodium Chloride (Sodium Chloride 0.65% Na Soln 45 Ml ([place])) 1 - 2 sprays NA PRN PRN PRN Reason: Nasal Dryness/Congestion Stop: 07/31/25 10:05 Sodium Chloride (Sodium Chloride 0.65% Na Soln 45 Ml ([place])) 2 sprays NA DAILY PRN PRN Reason: nasal dryness or congestion Stop: 07/31/25 13:05 Mental Health & Subst Abuse Tx Psychiatrist Name of Psychiatrist: Eleni Arroyo Psychiatrist's Psychiatric Appointment Comment: [address] [place] [address] Therapist Name of Therapist: Eleni Arroyo Therapist's Therapy Appointment Comment: [address] [place] [address] Post Discharge Appointments Primary Care Physician Name Of Family Doctor/PCP: Roberto Britton [facility] Date of Future Appointment with PCP: 07/05/25 Provider Appointment Comment: Called to cancel Appt on 07/05 per patient's request, per rep no appt listed Contact Information Discharge Discharge Address: [address] [place], [place] [id number] (3) Intentional overdose Encounter type: subsequent encounter Qualified Code(s): T50.902D - Poisoning by unspecified drugs, medicaments and biological substances, intentional self- harm, subsequent encounter (4) Migraine Migraine type: unspecified
--- NOTE | 2025-07-04 09:36 | Psychiatric Progress Note ---
Date of Service July 04, 2025 Impression / Recommendations Impression GERSON CHRISTIANSON is a 30-year-old woman who currently lives with her , has a history of PTSD, depression, anxiety, fibromyalgia, and was admitted on 07/01/25 12:03 on a 201 voluntary commitment for suicidal attempt by overdose. Patient with unclear history of mood disorder who presented after a suicide attempt by overdose. Diagnosis of unspecified depressive disorder with broad differential. A: Mood improving but had more sleep difficulty last night. Tolerating duloxetine increase so far. Denies SI and feels her trauma symptoms have lessened. SW working on aftercare and disposition planning, no current outpatient providers and unable to schedule today due to the weekend. Overall, I spent a total of 28 minutes on this case including meeting with the patient, reviewing the chart, nursing report, multidisciplinary team meeting, orders, and documentation. (1) Suicidal ideation: (2) Unspecified mood [affective] disorder: (3) Intentional overdose: (4) Migraine: (5) Mica's disease: Plan 07/04/2025: -Continue current medications and tx plan 07/03/2025: -Continue current medications and tx plan 07/02/25: -Recent labs results reviewed and shared with the patient. Labs for heavy metals collected, results pending. - Continue medications without changes, monitor for signs of marian in the context of duloxetine 30 mg twice daily. 07/01/25: The patient was admitted to the [facility] ([facility] mental health unit) on q15 min checks (behavioral with suicide precautions) for safety. The patient will participate in group, recreational, and milieu therapies and will be offered additional individual and family sessions as clinically appropriate. -Resuming duloxetine at 30 mg p.o. twice daily, monitor for marian -Continue medications for general medical conditions -Labs ordered Inventory Assets Strengths: supportive relationships, willing to get treatment Needs: safety and stabilization, medication adjustment, additional coping skills, increased outpatient services Suicide Risk Level Suicide Risk Level: Moderate (q15 min suicide checks) (s/p suicide attempt but mood improving and now denying SI and feels safe in the hospital and feels able to ask for support from staff) Risk Factors Assessment Male: No : Yes Do You Have Access To A Gun?: Yes Health Problems: Yes Mental Health Diagnoses: Yes Substance Use Disorders: No Previous Attempt: Yes Family History of Suicide: No Previous Psychiatric Hospitalization: Yes Hopelessness: No Protective Factors Assessment : Yes Employed: Yes Stable Relationships: Yes Supportive Family: Yes Interval History Identifying Information GERSON CHRISTIANSON is a 30-year-old F who currently lives with her , has a history of depression, anxiety, fibromyalgia, and was admitted on 07/01/25 12:03 on a 201 voluntary commitment for suicidal attempt by overdose. Chief Complaint "I'm ok". Review of Systems Sleep Information Total Hours of Sleep: 7.75 Meal Information Percent Meal Consumed - Breakfast: 100 Percent Meal Consumed - Lunch: 50 Percent Meal Consumed - Dinner: 90 Subjective Subjective Patient was seen & assessed and interval progress reviewed with nursing and social work. Attending groups. Reports her racing thoughts are lessening and had good visit with her . Had more difficulty sleeping last night. Mood is starting to improve a bit. Physical Exam Psychiatric Orientation: alert and oriented x 3 Apperance: appropriately dressed and appropriately groomed Eye Contact: good eye contact Motor Behavior: no abnormal motor movements Speech: normal rate/rhythm/volume of speech Affect: + anxious affect Mood: + anxious mood Thought Process: goal directed thought process Thought Content: reality based without delusions Suicidal Thoughts: denies suicidal thoughts Homicidal Thoughts: denies homicidal thoughts Hallucinations: no auditory hallucinations and no visual hallucinations Cognition: attention grossly intact and language grossly intact Estimated Intelligence: average estimated intelligence Insight: + fair insight Judgment: + fair judgement Vital Signs (Past 24 Hours) Last Vital Signs Temp 36.8 C 07/04/25 05:46 Pulse 95 H 07/04/25 05:47 Resp 17 07/04/25 05:46 BP 122/86 07/04/25 05:47 Pulse Ox 100 07/04/25 05:46 O2 Del Method Room Air 07/04/25 05:46 Results & Data ([facility]) Current Inpatient Medications Current Inpatient Medications: Current Inpatient Medications Acetaminophen (Acetaminophen 325 Mg Tab) 650 mg PO Q4H PRN PRN Reason: Headache or Minor Fever Stop: 07/31/25 10:05 Al Hydrox/Mg Hydrox/Simethicone (Aluminum/Magnesium Susp 30 Ml Udc) 30 ml PO Q4H PRN PRN Reason: GI Upset Stop: 07/31/25 10:05 Bismuth Subsalicylate (Bismuth Subsalicylate 262 Mg Chew) 2 tab PO Q30M PRN PRN Reason: Loose Stool/Diarrhea Stop: 07/31/25 10:05 Cetirizine HCl (Cetirizine Hcl 10 Mg Tablet) 10 mg PO QPM [facility] Stop: 07/31/25 20:59 Last Admin: 07/03/25 20:59 Dose: Not Given Diclofenac Sodium (Diclofenac Sod 1% Gel 100 Gm Tube) 4 gm EXT [facility]; Protocol Stop: 07/31/25 20:59 Last Admin: 07/04/25 08:40 Dose: Not Given Duloxetine HCl (Duloxetine Hcl 30 Mg Cap) 30 mg PO BID [facility] Stop: 08/01/25 08:59 Last Admin: 07/04/25 08:39 Dose: 30 mg Fish Oil ([place]-3 (Purified Fish Oil) 1 Gm Cap) [facility] Stop: 08/01/25 08:59 Last Admin: 07/04/25 08:40 Dose: 1 cap Gabapentin (Gabapentin 400 Mg Cap) [facility] Stop: 08/01/25 08:59 Last Admin: 07/04/25 08:38 Dose: 400 mg Hydroxyzine HCl (Hydroxyzine Hcl 25 Mg Tab) 25 mg PO Q4H PRN PRN Reason: Anxiety Stop: 07/31/25 10:05 Levothyroxine Sodium (Levothyroxine Sodium 88 Mcg Tablet) 88 mcg PO DAILYBB [facility] Stop: 08/01/25 07:59 Last Admin: 07/04/25 08:38 Dose: 88 mcg Magnesium Hydroxide (Magnesium Hydroxide Susp 30 Ml Udc) 30 ml PO DAILY PRN PRN Reason: Constipation Stop: 07/31/25 10:05 Meloxicam (Meloxicam 7.5 Mg Tab) 15 mg PO DAILY PRN PRN Reason: Pain Stop: 07/31/25 13:05 Metformin HCl (Metformin Hcl Er 500 Mg Tabcr) 1,000 mg PO BID [facility] Stop: 07/31/25 20:59 Last Admin: 07/04/25 08:39 Dose: 1,000 mg Montelukast Sodium (Montelukast Sodium 10 Mg Tablet) 10 mg PO QAM [facility] Stop: 08/01/25 08:59 Last Admin: 07/04/25 08:37 Dose: 10 mg Multivitamins (Multivitamin Tab) [facility] Stop: 08/01/25 08:59 Last Admin: 07/04/25 08:39 Dose: 1 tab Sodium Chloride (Sodium Chloride 0.65% Na Soln 45 Ml ([place])) 1 - 2 sprays NA PRN PRN PRN Reason: Nasal Dryness/Congestion Stop: 07/31/25 10:05 Sodium Chloride (Sodium Chloride 0.65% Na Soln 45 Ml ([place])) 2 sprays NA DAILY PRN PRN Reason: nasal dryness or congestion Stop: 07/31/25 13:05 Mental Health & Subst Abuse Tx Psychiatrist Name of Psychiatrist: Eleni Arroyo Psychiatrist's Psychiatric Appointment Comment: [facility] [place] [address] Therapist Name of Therapist: Eleni Arroyo Therapist's Therapy Appointment Comment: [address] [place] [address] Post Discharge Appointments Primary Care Physician Name Of Family Doctor/PCP: Roberto Britton [facility] Date of Future Appointment with PCP: 07/05/25 Provider Appointment Comment: Called to cancel Appt on 07/05 per patient's request, per rep no appt listed Contact Information Discharge Discharge Address: [address] [place] [id number] (3) Intentional overdose Encounter type: subsequent encounter Qualified Code(s): T50.902D - Poisoning by unspecified drugs, medicaments and biological substances, intentional self- harm, subsequent encounter (4) Migraine Migraine type: unspecified
[2025-07-05 06:36] VITALS: PULSE 83; RESP 16; TEMP 97.6; O2SAT 99
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
[2025-07-05 13:46] VITALS: BP 115/82
== END 2025-07-05 16:04 | disposition home or self-care (01) | DRG 881 ==
LOC: 3S 12:03 → SUATTDRO 12:03